=== PATIENT | male | born 1985 | race Hispanic/Latino ===

== ENCOUNTER → 2021-07-12 | Outpatient (CLI) | payer OTHER ==
[2021-07-12 10:42] LABS: INR 1.03 (0.85-1.15); PROTHROMBIN TIME 11.2 SEC (9.6-11.6)
[2021-07-12 10:43] LABS: PARTIAL THROMBOPLASTIN TIME 26.9 SEC (26.3-35.5)
== END | disposition home or self-care (01) ==
LOC: RAH 09:18
PROVIDERS: ATTEND Internal Medicine
DX: E04.2 Nontoxic multinodular goiter (principal); Z79.01 Long term (current) use of anticoagulants; Z98.890 Other specified postprocedural states
CPT/HCPCS: 10005; 10006; 36415; 76942; 85610; 85730; 88173; 88305

== ENCOUNTER → 2022-04-05 | Outpatient (CLI) | payer BC | END | disposition home or self-care (01) | LOC: RAH 10:55 | PROVIDERS: ATTEND Internal Medicine | DX: E04.2 Nontoxic multinodular goiter (principal) | CPT/HCPCS: 76536 ==